=== PATIENT | female | born 1995 | race Two or more races ===

== ENCOUNTER 2021-06-24 16:26 | Emergency (ER) | payer OTHER ==
[~2021-06-24] VITALS: Ht 152.4 cm; Wt 63.5 kg
[2021-06-25] MEDS ORDERED: LORA-622 PO (00:26)
[2021-06-25] MEDS ORDERED: AZITTAB PO (00:26)
[2021-06-25] MEDS ORDERED: ALBU108A5 IN (00:26)
[2021-06-25] MEDS ORDERED: FLUT1SPR5 (00:26)
[2021-06-25] MEDS ORDERED: ACET-1304 PO (00:26)
[2021-06-25 00:30] VITALS: BP 105/65
[2021-06-25] MEDS ORDERED: ACETAMINOPHEN 500 MG TAB PO ONE (00:30)
== END 2021-06-25 00:40 | disposition home or self-care (01) ==
LOC: ER 16:26
DX: U07.1 COVID-19 (principal); R51.9 Headache, unspecified; R06.02 Shortness of breath; R53.83 Other fatigue
CPT/HCPCS: 36415; 87426